=== PATIENT | female | born 1950 ===

== ENCOUNTER 2017-06-13 12:33 | Emergency (ER) | payer MEDICARE, MEDICAID ==
[2017-06-13 12:58] VITALS: O2SAT 100
--- NOTE | 2017-06-13 14:02 | C.PDOC ---
History Of Present Illness Pt is a 66 yr old female with PMHx of HTN presents to the ER s/p left upper eyelid swelling and area of swelling to the left upper arm. Patient states her eye is itchy. Patient denies fever, vision changes, chest pain, SOB, nausea, vomiting, headache, neck pain, weakness or numbness. Pt states that she was asymptomatic yesterday. PMD: Dr. Zendejas . Time Seen by Provider: 06/13/17 13:26 Chief Complaint (Nursing): Abnormal Skin Integrity History Per: Patient History/Exam Limitations: no limitations Onset/Duration Of Symptoms: Sudden Onset Past Medical History Reviewed: Historical Data, Nursing Documentation, Vital Signs Vital Signs: Last Vital Signs Temp 98.1 F 06/13/17 14:27 Pulse 72 06/13/17 14:27 Resp 20 06/13/17 14:27 BP 175/93 H 06/13/17 14:27 Pulse Ox 100 06/13/17 14:52 - Medical History PMH: HTN Family History: States: CAD - Social History Hx Tobacco Use: No Hx Alcohol Use: No Hx Substance Use: No - Immunization History Hx Tetanus Toxoid Vaccination: No Hx Influenza Vaccination: No Hx Pneumococcal Vaccination: No Review Of Systems Except As Marked, All Systems Reviewed And Found Negative. Constitutional: Negative for: Fever Eyes: Positive for: Other ((+) Left upper eyelid swelling). Negative for: Vision Change Cardiovascular: Negative for: Chest Pain Respiratory: Negative for: Shortness of Breath Gastrointestinal: Negative for: Nausea, Vomiting Musculoskeletal: Positive for: Other ((+) Area of swelling to the left upper arm.). Negative for: Neck Pain Neurological: Negative for: Weakness, Numbness, Headache Physical Exam - Physical Exam Appears: Non-toxic, No Acute Distress Skin: Normal Color, Warm, Dry Head: Atraumatic, Normacephalic Eye(s): bilateral: PERRL, EOMI, right: Normal Inspection, left: Other (Left upper eyelid swollen. No blurry vision. No conjunctival injection.) Nose: Normal Oral Mucosa: Moist Tongue: Normal Appearing Lips: Normal Appearing Throat: Normal, No Erythema Neck: Normal Chest: Symmetrical, No Tenderness Cardiovascular: Rhythm Regular, No Murmur Respiratory: Normal Breath Sounds, No Rales, No Rhonchi, No Stridor, No Wheezing Extremity: Normal ROM, Other (left upper arm with hard/inflamed area (? insect bite vs. allergic reaction)) Neurological/Psych: Oriented x3, Normal Speech, Normal Motor ED Course And Treatment O2 Sat by Pulse Oximetry: 100 (RA) Pulse Ox Interpretation: Normal Medical Decision Making Medical Decision Making: Initial impression: Left eye Blepharitis vs. allergic reaction vs. possible insect bite. Initial plan: * Benadryl PO * Prednisone PO * D/C on Augmentin + steroids Disposition Counseled Patient/Family Regarding: Diagnosis, Need For Followup, Rx Given - Disposition Referrals: Vincenzo Jones MD [Staff Provider] - Disposition: HOME/ ROUTINE Disposition Time: 13:59 Condition: STABLE Additional Instructions: Ms. Hester, thank you for letting us take care of you today. Return to the ER if your symptoms worsen, or if any problems. Take the medicine listed below as prescribed. Please call the eye doctor (Dr. Jones) at the phone number listed below to make a follow up appointment--for next week. Prescriptions: Amoxicillin/Clavulanate [Augmentin 875 MG-125 MG] 1 tab PO BID #14 tab Loratadine [Claritin] 1 tab PO DAILY #21 tab Neomycin/Polymyxin/Dexamethaso [Neomycin/Polymyxin/Dexamethasone] 1 applic OS BID #1 tube predniSONE [predniSONE Tab] 1 tab PO TID #12 tab Instructions: Blepharitis (ED), General Allergic Reaction (ED) Forms: [email or web address] (Arabic) Print Language: OCCITAN - POA Present On Arrival: None - Clinical Impression Clinical Impression: Allergic reaction, Blepharitis of left eye - Scribe Statement The provider has reviewed the documentation as recorded by the Lewis Stein Provider Attestation: All medical record entries made by the Lewis were at my direction and personally dictated by me. I have reviewed the chart and agree that the record accurately reflects my personal performance of the history, physical exam, medical decision making, and the department course for this patient. I have also personally directed, reviewed, and agree with the discharge instructions and disposition.
[2017-06-13 14:27] VITALS: BP 175/93; PULSE 72; RESP 20; TEMP 98.1
== END 2017-06-13 14:28 | disposition home or self-care (01) ==
LOC: C.ER 12:33
DX: H01.006 Unspecified blepharitis left eye, unspecified eyelid (principal); T78.40XA Allergy, unspecified, initial encounter; X58.XXXA Exposure to other specified factors, initial encounter; I10 Essential (primary) hypertension